=== PATIENT | female | born 1965 | race Caucasian/White ===

== ENCOUNTER 2017-04-06 05:49 | Inpatient (IN) ==
[2017-04-06] MEDS ORDERED: CeFAZolin Pre 2,000 MG/100 ML 2,000 MG/100 ML BAG IVPB ONE (06:21)
[2017-04-06] MEDS ORDERED: Lidocaine -MPF 1% 2 ML VIAL ID ONE (06:21)
[2017-04-06] MEDS ORDERED: Ringers Solution, Lactated 1,000 ML IVC SCH ×2 (06:30→12:09)
[2017-04-06] MEDS ORDERED: Albuterol 2.5 MG/3 ML NEBULIZER ONE (06:33)
[2017-04-06] MEDS ORDERED: Albuterol 2.5 MG/3 ML NEBULIZER IH ONE (06:36)
[2017-04-06] MEDS ORDERED: Ondansetron 4 MG/2 ML VIAL ONE (07:06)
[2017-04-06] MEDS ORDERED: *HR* FentaNYL (PF) 100 MCG/2 ML VIAL ONE (07:06)
[2017-04-06] MEDS ORDERED: Lidocaine -MPF 4% 5 ML AMPUL ONE (07:06)
[2017-04-06] MEDS ORDERED: Dexamethasone 4 MG/ML VIAL ONE (07:06)
[2017-04-06] MEDS ORDERED: Lidocaine -MPF 2% 2 ML VIAL ONE (07:06)
[2017-04-06] MEDS ORDERED: *HR* Remifentanil 1 MG VIAL IVP ONE ×2 (07:06→07:11)
[2017-04-06] MEDS ORDERED: *HR* Midazolam HCl 2 MG/2 ML VIAL ONE (07:06)
[2017-04-06] MEDS ORDERED: *HR* Succinylcholine 200 MG/10 ML VIAL IVP ONE (07:06)
[2017-04-06] MEDS ORDERED: *HR* Rocuronium Bromide 50 MG/5 ML VIAL ONE (07:06)
[2017-04-06] MEDS ORDERED: *HR* Propofol 200 MG/20 ML VIAL IVP ONE (07:07)
[2017-04-06] MEDS ORDERED: Lacri-Lube 3.5 GM TUBE ONE (07:12)
[2017-04-06] MEDS ORDERED: *HR* Phenylephrine 10 MG/ML VIAL ONE (07:12)
[2017-04-06] MEDS ORDERED: Famotidine 20 MG/2 ML VIAL IVP ONE (07:26)
[2017-04-06] MEDS ORDERED: *HR* HYDROmorphone (PF) 1 MG/ML SYRINGE IVP PRN (07:26)
[2017-04-06] MEDS ORDERED: *HR* Promethazine 25 MG/ML VIAL IVP PRN (07:26)
[2017-04-06] MEDS ORDERED: *HR* Labetalol 20 MG/4 ML SYRINGE IVP PRN (07:26)
[2017-04-06] MEDS ORDERED: Gabapentin 300 MG CAPSULE PO STA (07:27)
[2017-04-06] MEDS ORDERED: Acetaminophen IV 1,000 MG/100 ML INFUS..BTL IVPB ONE (07:27)
--- NOTE | 2017-04-06 07:32 | Anesthesia Evaluation PreOp ---
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/p chemo & radiation]) CORRECTION WORKER History: Other (Lumbar stenosis/Chronic Pain maintained on GAbapentin) Other Medical History: GERD (maintained on Ranitidine) Anesthesia History: No Prior Anesthetic Complications, Past Anesthesia (Partial Hyster, Trach placement 12/2013 [[facility]], PLIF 03/25/15,) Alcohol Use: none Drug use: none Medications and Allergies Aripiprazole [Abilify] 5 mg PO DAILY 06/03/15 [History] Cyclobenzaprine HCl 5 mg PO HS 06/03/15 [History] Escitalopram [Lexapro] 10 mg PO HS 06/03/15 [History] LORazepam [Ativan] 0.5 mg PO HS 06/03/15 [History] Famotidine [Pepcid] 20 mg PO BID 04/06/17 [History] Gabapentin [Neurontin] 600 mg PO TID 04/06/17 [History] Meloxicam [Mobic] 15 mg PO DAILY 04/06/17 [History] Multivitamin [Multi-Day Vitamins] 1 each PO DAILY 04/06/17 [History] Ranitidine HCl [Zantac] 150 mg PO HS 04/06/17 [History] Tramadol HCl [Ultram] 50 mg PO QID PRN 04/06/17 [History] Allergies No Known Allergies Allergy (Verified 04/06/17 07:34) - Meds/Allergy Pre-op Review Medications Reviewed: Yes Allergies Reviewed: Yes Beta Blockers on Current Med List: No Anesthesia Results - Labs Laboratory Tests 10/15/16 03/30/17 03/30/17 16:07 16:23 16:23 WBC 6.2 Hgb 12.6 Hct 37.8 Plt Count 329 PT 11.3 INR 1.0 APTT 29.7 Sodium Potassium Chloride Carbon Dioxide BUN Creatinine Est GFR (Non-Af Amer) Glucose 87 03/30/17 16:23 WBC Hgb Hct Plt Count PT INR APTT Sodium 140 Potassium 3.7 Chloride 107 Carbon Dioxide 26 BUN 7 Creatinine 0.71 Est GFR (Non-Af Amer) > 60 Glucose Anesthesia Exam O2 Sat Height 1.68 m Height 1.68 m Weight 72.121 kg Weight 72.121 kg O2 Sat by Pulse Oximetry 96 Vital Signs Temp Pulse Resp BP Pulse Ox 97.4 F L 76 18 108/69 96 04/06/17 06:12 04/06/17 06:12 04/06/17 06:12 04/06/17 06:12 04/06/17 06:12 Height: 5'6" Weight: 159# BI = 26 - HEENT Pupil (Motor): Pupils equal, EOMI Mallampati: Intubated (UNCUFFED #6 fenestrated, cap in place) Teeth: Edentulous Denture Type: Upper: Complete, Lower: Complete - CORRECTION WORKER LOC: Oriented CORRECTION WORKER Motor: Normal RUE, Normal LUE, Normal Face, Deficit RLE, Deficit LLE CORRECTION WORKER Sensory: Normal: RUE, LUE, Face, Deficit: RLE (L>>R N&T, some weakness), LLE - Cardiac Rhythm: Regular Murmur: None - Pulmonary Breath Sounds: bilateral Clear Respiratory Effort: Symmetrical Anesthesia Assess/Plan ASA Score: 3 (Hx Throat Ca, Trach, Smoker) Modified Saadia Scale for Level of Consciousness: Cooperative, oriented, and tranquil Anesthetic Plan: General Monitoring Plan: Standard Monitors Recovery Plan: PACU Anes Supervising Prov Stmt: PT seen/evaluated, R&B Discussed, questions answered and consent obtained. Katherine Meehan MD
--- NOTE | 2017-04-06 07:39 | History & Physical Report ---
Date of Encounter: 04/06/17 Time of Encounter: 07:30 24 Hour HP Update - Instructions Instructions: If the History and Physical is less than 30 days old and was completed prior to A.M. admission and or procedure and has NOT been updated on calendar day of procedure please complete this update prior to performing procedure. - Update Patient reports changes in Medical Condition: No Changes in examination, assessment, or condition: No Changes in Medication: No Preop tests/diagnostics Reviewed: Yes Pre-Op MRSA Screen: Negative Surgery Remains Indicated: Yes Consent for Planned Operative Procedure(s) Verified: Yes - Pre-Operative Checklist Preoperative Checklist Indicated: No Prophylactic Antibiotic Ordered: Yes Home Medications Include Beta Kadeem: No Beta Kadeem Taken Today (Day of Surgery): No Beta Kadeem Taken Yesterday (Day Prior to Surgery): No Is VTE Prophylaxis Indicated?: Yes
[2017-04-06] MEDS ORDERED: EPHEDrine 50 MG/ML VIAL ONE (08:15)
[2017-04-06] MEDS ORDERED: *HR* HYDROmorphone 2 MG/ML SYRINGE ONE (10:52)
--- NOTE | 2017-04-06 11:07 | Orthopedic Operative Note ---
Date of procedure: 04/06/17 Pre-op diagnosis: Spondylolisthesis, lumbar stenosis, s/p lumbar fusion Post-op diagnosis: same Operation/Findings: Exploration of fusion, removal of hardware, posterior lumbar interbody fusion L3 -L5: The patient successfully underwent general endotracheal anesthesia. The patient was given antibiotics prior to the start of the procedure. Compression boots and stockings were used for deep vein thrombosis prophylaxis. A Barnard catheter was placed. Leads for neuro monitoring were placed on the upper and lower extremities. This included the cranium. The neuro monitoring personnel confirmed there were satisfactory readings prior to the start of the procedure. The patient was turned prone on the Koko table. The back was prepped and draped in the usual sterile fashion. An incision was was marked and centered over the involved L3-L5 levels in the mid line. The incision was deepened through the lumbar fascia. Bovie cautery and Beltran elevators were used to reflect the paraspinal musculature at the lateral extent of the transverse processes of the involved L3-L5 levels. Mary clamps were placed over the L3 and L4 spinous processes. An intraoperative lateral fluoroscopy graft was obtained. A conversation was held between the surgeon and radiologist and both confirmed we had the correct operative levels. We then placed pedicle screws in standard fashion with the aid of fluoroscopy and anatomic landmarks. Briefly a starter awl was used. A gearshift was subsequently used to enter the pilot highway patrol hole via a transpedicular route into the vertebral body. The pilot highway patrol hole was tapped with an undersized instrument, and subsequently two 6.5 x 40 mm pedicle screws were placed bilaterally at the indicated L3 level. The screws were tested with the aid of the neurologic monitoring staff via pedicle screw stimulation. All reading suggested there was no significant cortical wall breech. The screws were also evaluated fluoro- graphically and appeared to be in satisfactory position. We then removed the screw caps and rods from the L4 and L5 levels. We explored the fusion at L4-L5 and there was noted to be a solid arthrodesis of the facets and intertransverse region without evidence of pseudoarthrosis. We then turned our attention to the decompression portion of the procedure. We removed the supraspinous and interspinous ligaments and subsequently the insertion of the ligamentum flavum on the undersurface of the proximal L3 lamina was dislodged with a curette. We then removed the ligamentum flavum as well as undercut the facets at this L3-4 level to decompress the lateral recesses. We also performed a L3 laminectomy. After the decompression, which was over and above that which was required to place the interbody graft, the foramen and traversing roots at this L3-L4 level were found to be free and patent. We also took part of the medial facet in order to aid in the decompression. We then protected the neural elements including the thecal sac and traversing nerve root on the right with a dural retractor. We made an annulotomy into the L3-L4 disc space and then removed disc material using Pituitary instruments. We trialed various size grafts after the endplates were prepared for graft insertion. A 10 x 26 enter body graft fit well within the L3-L4 disc space. We obtained some bone from the right posterior superior iliac spine through us a separate incision and combined with this with the bone which we had saved from the laminectomy portion of the procedure. This autograft bone was first placed in the anterior portion of the L3-L4 disc space and additional bone was placed within the interbody graft spacer. We then placed the interbody graft spacer obliquely across the disc space towards the midline while protecting the neural elements with a root retractor. When the graft was found to be in satisfactory position the diamond selector was removed. We then copiously irrigated the wound. We then decorticated the L3 and L4 transverse processes as well as the facet joints of the involved L3-L4 levels to aid in the posterolateral fusion. We placed autograft bone in the lateral gutters over these regions. We then placed rods within the screw heads of the involved L3, L4, and L5 levels and first locked the distal screws and then subsequently locked the proximal screws so as to improve and reduce the spondylolisthesis previously seen. We then closed the wound in layers with 1 Vicryl for the fascia, 2-0 Vicryl. Subcutaneous tissue, and Dermabond was used for skin closure. Sterile dressings were placed over the wound. The patient was turned supine on a hospital bed and extubated. All sponge instruments and needle counts were correct at the end of the procedure. The patient tolerated the procedure well without complications. Anesthesia: GETA Surgeon: Alexy Hayes Jr Estimated blood loss (cc): 250 Condition: stable Disposition: PACU
--- NOTE | 2017-04-06 11:41 | Anesthesia Evaluation Post Op ---
Date of Encounter: 04/06/17 Time of Encounter: 11:40 - Vital Signs Vital Signs: Last Vital Signs Temp 97.0 F L 04/06/17 11:15 Pulse 75 04/06/17 11:35 Resp 12 04/06/17 11:35 BP 116/73 04/06/17 11:35 Pulse Ox 100 04/06/17 11:35 - Lungs Lungs: Clear Ascult./Percussion - Airway Airway: Non-obstructed - Cardiovascular Regular Rate - Mental Status Mental Status: Alert & Oriented, Answers Appropriately - Pain Pain Scale: 3 - Nausea Vomiting Nausea Vomiting: Not Present - Hydration Hydration: NPO - Discharge PostOp Status: Transfer Patient to floor
[2017-04-06] MEDS ORDERED: *HR* LORazepam 0.5 MG TABLET PO PRN (12:09)
[2017-04-06] MEDS ORDERED: Ondansetron 4 MG/2 ML VIAL IVP PRN (12:09)
[2017-04-06] MEDS ORDERED: Naloxone 0.4 MG/ML INJ IVP PRN (12:09)
[2017-04-06] MEDS ORDERED: *HR* OxyCODONE Immed Rel 5 MG TABLET PO SCH (12:09)
[2017-04-06] MEDS: ceFAZolin 2,000 MG in D5% in Water 100 ML IVPB SCH ×2 (15:45→23:34)
[2017-04-06] MEDS: *HR* OxyCODONE Immed Rel 5 MG TABLET PO PRN ×2 (15:46→21:07)
[2017-04-06] MEDS ORDERED: NON-FORMULARY MEDICATION 1 EACH EACH (Ranitidine Hcl [Zantac] 150 MG) PO SCH (21:00)
[2017-04-06] MEDS: Famotidine 20 MG TABLET PO SCH (21:07)
[2017-04-06] MEDS: ARIPiprazole 5 MG TABLET PO SCH (21:07)
[2017-04-06] MEDS: *HR* Morphine 2 MG/ML SYRINGE IVP PRN (23:34)
[2017-04-07] MEDS: *HR* OxyCODONE Immed Rel 5 MG TABLET PO PRN ×4 (04:28→20:39)
[2017-04-07 07:05] LABS: Basophils % 0.3 %; Eosinophils % 0.4 %; Hematocrit 35.6 % (35.3-44.9); Hemoglobin 12.1 g/dL (11.5-15.4); Immature Granulocytes % 0.4 % (0-4); Lymphocytes # 1.5 K/mcL (0.6-4.6); Lymphocytes % 19.2 %; Mean Corpuscular Hemoglobin 33.6 pg (28.0-33.3); Mean Corpuscular Volume 98.9 fL (83.0-100.0); Mean Platelet Volume 8.8 fL (9.4-12.4); Monocytes # 0.4 K/mcL (0.0-1.3); Monocytes % 5.8 %; Neutrophils # 5.7 K/mcL (1.6-8.9); Platelet Count 291 K/mcL (140-400); Red Cell Distribution Width 12.8 % (11.5-14.5); Segmented Neutrophils % 73.9 %
[2017-04-07] MEDS: *HR* Morphine 2 MG/ML SYRINGE IVP PRN (07:05)
[2017-04-07 07:14] LABS: BUN/Creatinine Ratio 8 (6-26); Calcium 9.2 mg/dL (8.6-10.8); Carbon Dioxide 26 mEq/L (19-29); Chloride 107 mEq/L (98-109); Glucose 104 mg/dL (70-99); Osmolality,Calculated 286 (280-300); Sodium 139 mEq/L (136-145); eGFR For African Americans > 60 (> 60); eGFR For Non-African Americans > 60 (> 60)
[2017-04-07 07:18] LABS: Blood Urea Nitrogen 5 mg/dL (7-20)
[2017-04-07] MEDS: Famotidine 20 MG TABLET PO SCH ×2 (09:34→20:38)
[2017-04-07] MEDS: Multivit/Ca/Min/Fe/FA 1 TAB TABLET PO SCH (09:34)
[2017-04-07] MEDS: ARIPiprazole 5 MG TABLET PO SCH (20:38)
[2017-04-08] MEDS: *HR* OxyCODONE Immed Rel 5 MG TABLET PO PRN ×2 (05:05→09:42)
[2017-04-08] MEDS: Multivit/Ca/Min/Fe/FA 1 TAB TABLET PO SCH (09:42)
[2017-04-08] MEDS: Famotidine 20 MG TABLET PO SCH (09:43)
--- NOTE | 2017-04-08 15:11 | Discharge Summary ---
Date of Encounter: 04/08/17 Time of Encounter: 15:09 - Discharge Diagnosis (1) Lumbar stenosis Priority: Primary Status: Chronic (2) Lumbar radiculopathy Priority: Secondary Status: Chronic - Discharge Medications Prescriptions: OxyCODONE Immed Rel [Roxicodone 5 MG] 5 mg PO Q4HR PRN #60 tab PRN Reason: Severe Pain Home Medications: Aripiprazole [Abilify] 5 mg PO HS 06/03/15 [History] Cyclobenzaprine HCl 5 mg PO HS PRN 06/03/15 [History] Escitalopram [Lexapro] 10 mg PO HS 06/03/15 [History] LORazepam [Ativan] 0.5 mg PO HS PRN 06/03/15 [History] Famotidine [Pepcid] 20 mg PO BID 04/06/17 [History] Meloxicam [Mobic] 15 mg PO DAILY 04/06/17 [History] Multivitamin [Multi-Day Vitamins] 1 each PO DAILY 04/06/17 [History] Ranitidine HCl [Zantac] 150 mg PO HS 04/06/17 [History] Tramadol HCl [Ultram] 50 mg PO QID PRN 04/06/17 [History] OxyCODONE Immed Rel [Roxicodone 5 MG] 5 mg PO Q4HR PRN #60 tab 04/08/17 [Rx] Allergies/Adverse Reactions: Allergies No Known Allergies Allergy (Verified 04/06/17 07:34) - Impressions ITS Impressions Lumbar Spine X-Ray 04/06/17 00:00 IMPRESSION: Expected cross-table lateral postsurgical appearance of the lumbar spine D/ / Kash Rogers MD / Kash Rogers MD Interpreting Provider: Kash Rogers MD Lumbar Spine X-Ray 04/08/17 08:09 IMPRESSION: No acute complication status post recent L3-L5 posterior fusion and decompression. D/ / 04/08/2017 07:57:33 Trey Lundberg MD / bcarter Interpreting Provider: Trey Lundberg MD Date of admission: 04/06/17 12:09 Primary care physician: Camille Paulino CNP Consults: 04/06/17 12:09 Consult to Occupational Therapy [CONS] Routine Comment: Evaluate, develop and implement POC Reason for Consult: Postoperative Consult to Physical Therapy [CONS] Routine Comment: Evaluate, develop and implement POC Reason for Consult: Postoperative Consult to Spine Navigator [CONS] [CONS] Routine 04/06/17 12:44 Consult to Pastoral Services [CONS] Routine Comment: - Patient Status Disposition: Home, Self-Care Condition: Good Functional capacity at discharge: independent ambulation Overall status at discharge: patient is progressing back to baseline - Discharge Instructions Follow Up With: Jenny Stanton PAC [Physician Sheep Sticker] - 04/19/17 10:20 am Camille Paulnio CNP [Primary Care Provider] - - Diet and Activity Activity: as per physical therapy Diet: advance to your usual diet - Hospital Course Hospital course: Ms. Abbott is a 51 year old female The patient had an uneventful postoperative course. Progressed from intravenous analgesic needs to oral analgesic needs only. Remained neurovascularly intact and mobilized satisfactorily. All intraoperative and/or postoperative radiographic studies were satisfactory. Patient is discharged with plan for rehabilitation and follow-up in 2 weeks post discharge on analgesic medication and patient's home medications. - Time Spent with Patient Total time spent providing and/or coordinating discharge services: - VTE Documentation of Mechanical Device: Intermittent pneumatic compression device
[2017-04-08 15:22] VITALS: BP 99/68
== END 2017-04-08 16:02 | disposition home or self-care (01) | DRG 460 ==
LOC: SAMDAY 05:49 → 3NENU 12:09
PROVIDERS: ADMIT Orthopaedic Surgery Orthopaedic Surgery of the Spine; ATTEND Orthopaedic Surgery Orthopaedic Surgery of the Spine